=== PATIENT | male | born 1975 | race Caucasian/White ===

== ENCOUNTER 2017-05-16 17:35 | Inpatient (IN) | payer OTHER ==
[~2017-05-16] VITALS: Ht 177.8 cm; Wt 96.8 kg
[2017-05-16] MEDS ORDERED: ATOR10TA84 PO (17:43)
[2017-05-16] MEDS ORDERED: BUPR150T3 PO (17:43)
[2017-05-16 18:12] LABS: BASOPHILS # (AUTO) 0.05 K/uL (0.00-0.20); BASOPHILS % (AUTO) 0.6 % (0.0-2.0); EOSINOPHILS # (AUTO) 0.32 K/uL (0.00-0.70); EOSINOPHILS % (AUTO) 3.98 % (1.0-6.0); HEMATOCRIT 52.9 % (41-53); HEMOGLOBIN 17.3 g/dL (13.5-17.5); LYMPHOCYTES # (AUTO) 1.7 K/uL (1.0-4.8); MEAN CORPUSCULAR HEMOGLOBIN 30.2 pg (26.0-34.0); MEAN CORPUSCULAR HGB CONC 32.7 G/dL (31.0-37.0); MEAN CORPUSCULAR VOLUME 92 fL (80-100); MONOCYTES # (AUTO) 0.6 K/uL (0.1-1.0); MONOCYTES % (AUTO) 6.8 % (2.0-9.0); NEUTROPHILS # (AUTO) 5.4 K/uL (1.8-7.7); NEUTROPHILS % (AUTO) 67.7 % (40.0-70.0); PLATELET COUNT (AUTO) 276 K/uL (150-450); RED BLOOD CELL COUNT(AUTO) 5.74 MIL/uL (4.50-5.90); RED CELL DISTRIBUTION WIDTH 13.7 % (11.5-14.5)
[2017-05-16 18:23] LABS: ANION GAP 11 mmol/L (8-16); CALCIUM, TOTAL 9.4 mg/dL (8.8-10.5); CARBON DIOXIDE 24 mmol/L (22-29); CHLORIDE 104 mmol/L (98-107); GLOMERULAR FILTR. RATE CALC > 60 mL/min (>60); POTASSIUM 3.7 mmol/L (3.5-5.1); SODIUM SERUM 139 mmol/L (136-145); UREA NITROGEN, BLOOD 20 mg/dL (7-18)
[2017-05-16 18:28] LABS: ALANINE AMINOTRANSFERASE 82 U/L (12-78); ALBUMIN 4.2 g/dL (3.4-5.0); ASPARTATE AMINOTRANSFERASE 31 U/L (15-37); BILIRUBIN,TOTAL 0.5 mg/dL (0.1-1.0); TOTAL PROTEIN, SERUM 7.7 g/dL (6.4-8.2)
[2017-05-16] MEDS ORDERED: LORazepam 2 MG TABLET PO PRN (22:30)
[2017-05-16] MEDS ORDERED: ZOLPIDEM TARTRATE 10 MG TABLET PO PRN (22:30)
[2017-05-16] MEDS ORDERED: HALOPERIDOL 5 MG TABLET PO PRN (22:30)
[2017-05-17 00:18] VITALS: BP 135/73
[2017-05-17] MEDS ORDERED: INFLUENZA VIRUS VACCINE QVS 2017-18 (3YR+)/PF 60 MCG/0.5 ML SYRINGE IM ONE (00:30)
[2017-05-17] MEDS ORDERED: MAG HYDROX/AL HYDROX/SIMETH ES 30 ML SUSPENSION UDCUP PO PRN (07:45)
[2017-05-17] MEDS ORDERED: MAGNESIUM HYDROXIDE SUSPENSION 30 ML UDCUP PO PRN (07:45)
[2017-05-17] MEDS ORDERED: LOPERAMIDE HCL 2 MG CAPSULE PO PRN (07:45)
[2017-05-17] MEDS ORDERED: ACETAMINOPHEN 325 MG TABLET PO PRN (07:45)
[2017-05-17] MEDS ORDERED: ONDANSETRON HCL 4 MG TABLET PO PRN (07:45)
[2017-05-17] MEDS ORDERED: BACITRACIN 28.4 GM OINTMENT TP PRN (07:45)
[2017-05-17] MEDS ORDERED: PETROLATUM,WHITE 71 GM JELLY TP PRN (07:45)
[2017-05-17] MEDS ORDERED: CloNIDine HCL 0.1 MG TABLET PO PRN (07:45)
[2017-05-17] MEDS ORDERED: BENZOCAINE/MENTHOL LOZENGE MM PRN (07:45)
[2017-05-17] MEDS ORDERED: ALBUTEROL SULFATE HFA 90 MCG/PUFF 8 GM INHALER IH PRN (07:45)
[2017-05-17 08:25] VITALS: BP 146/94
[2017-05-17 08:55] LABS: CHOL/HDL RATIO 6.9 (4.2-7.3)
[2017-05-17 16:30] VITALS: BP 114/73
[2017-05-17] MEDS: BuPROPion HCL 150 MG SR TABLET PO SCH (16:40)
[2017-05-17] MEDS ORDERED: BuPROPion HCL 100 MG SR TABLET PO SCH (17:00)
[2017-05-17 17:42] VITALS: BP 112/85
[2017-05-17] MEDS: IBUPROFEN 600 MG TABLET PO PRN (17:44)
[2017-05-17 18:44] VITALS: BP 115/85
[2017-05-17] MEDS ORDERED: ATORVASTATIN CALCIUM 10 MG TABLET PO SCH (21:00)
[2017-05-18 01:07] VITALS: BP 117/74
[2017-05-18 08:05] VITALS: BP 142/93
[2017-05-18] MEDS: BuPROPion HCL 150 MG SR TABLET PO SCH (08:53)
[2017-05-18] MEDS ORDERED: SERT50TA12 PO (12:40)
[2017-05-18] MEDS: SERTRALINE HCL 50 MG TABLET PO SCH ×2 (12:45→12:58)
[2017-05-18 12:58] VITALS: BP 138/87
[2017-05-18] MEDS: IBUPROFEN 600 MG TABLET PO PRN (12:58)
[2017-05-18] MEDS ORDERED: ATOR10TA84 PO (13:57)
[2017-05-19 07:54] LABS: HEPATITIS Bs ANTIGEN SCREEN P Negative (Negative); HEPATITIS C AB SCREEN <0.1 s/co ratio (0.0-0.9)
== END 2017-05-18 18:36 | disposition home or self-care (01) | DRG 881 ==
LOC: EMS 17:38 → B2S 21:56
PROVIDERS: ADMIT Psychiatry & Neurology Psychiatry; ATTEND Psychiatry & Neurology Psychiatry
PROC: 3E0234Z Introduction of Serum, Toxoid and Vaccine into Muscle, Percutaneous Approach (ICD-10-PCS; principal; 2017-05-17)
DX: F32.9 Major depressive disorder, single episode, unspecified (principal); R45.851 Suicidal ideations; F22 Delusional disorders; F43.10 Post-traumatic stress disorder, unspecified; G47.00 Insomnia, unspecified; F41.9 Anxiety disorder, unspecified; Z23 Encounter for immunization; E78.5 Hyperlipidemia, unspecified; Z56.0 Unemployment, unspecified; K21.9 Gastro-esophageal reflux disease without esophagitis; F12.10 Cannabis abuse, uncomplicated; Z71.51 Drug abuse counseling and surveillance of drug abuser; R74.0 Nonspecific elevation of levels of transaminase and lactic acid dehydrogenase [LDH]
CPT/HCPCS: 80074; 82306; 84443; 90471; 99285; G0480